=== PATIENT | male | born 1995 | race Caucasian/White ===

== ENCOUNTER 2019-10-12 19:48 | Emergency (ER) | payer OTHER, SELFPAY ==
[2019-10-12 19:50] VITALS: BP 135/85; PULSE 97; RESP 18; TEMP 37.4; O2SAT 98
--- NOTE | 2019-10-12 19:55 | ED.WOUNDLAC ---
HPI - Wound/Laceration General Chief Complaint: Wound/Laceration Stated Complaint: Cut on right hand Time Seen by Provider: 10/12/19 19:55 Source: patient and RN notes reviewed Mode of arrival: ambulatory Limitations: no limitations History of Present Illness HPI narrative: 24-year-old male presents with and laceration to the palmar aspect of his right hand. Reports he sustained the laceration just prior to arrival on a beer bottle. Patient is not up-to-date on his tetanus vaccine. Extremity Location: Right: hand Related Data Home Medications Medication Instructions Recorded Confirmed No Home Medications 10/12/19 10/12/19 Allergies Allergy/AdvReac Type Severity Reaction Status Date / Time No Known Allergies Allergy Verified 10/12/19 20:05 Review of Systems Review of Systems: Narrative: CONSTITUTIONAL: Denies malaise, chills, sweats, or fever. CARDIOVASCULAR: Denies chest pain, palpitations RESPIRATORY: Denies dyspnea. SKIN: Reports laceration to the palmar aspect of the right hand MUSCULOSKELETAL: Denies decreased range of motion or sensation NEUROLOGIC: Denies numbness, weakness. All systems reviewed & are unremarkable except as noted in HPI and below PMFSH Comments At time of signature, agree with nursing past medical, surgical, social and family history. There is no relevant family history pertinent to the presenting complaint Exam Narrative: Exam Narrative: GENERAL: Well-appearing, well-nourished, and in no acute distress. HEAD: Normocephalic, atraumatic. EYES: PERRLA, conjunctivae clear NECK: Supple. CHEST: Speaks in full sentences. No respiratory distress. HEART: Regular rate and rhythm. Normal and equal peripheral pulses. EXTREMITIES: Right hand and digits of hand have normal strength and sensation. 5/5 strength with digit flexion, extension. Range of motion normal. No clubbing, cyanosis, or edema noted. No tenderness. Skin intact. Normal digital cascade with flexion of fingers, median, ulnar and radial nerve intact. Normal sensation of each side of finger. Can perform 'okay' sign, 'cross over finger test of index and middle fingers' and 'thumbs up' sign. No scissoring. Normal thumb opposition. Good capillary refill and radial pulse. Distal capillary refill <3 seconds. SKIN: Warm, dry, no rash. 1.5 cm laceration into the subcutaneous tissue noted to the palmar aspect of the right hand beneath the first digit, slightly gaping. 2 superficial lacerations not into the subcutaneous tissue, not bleeding noted to the palmar aspect of the right hand beneath digits 4 and 5 NEURO: Alert and oriented x3. PSYCH: Normal mood and affect Course Course Emergency Course: Patient is aware of diagnosis, understands and agrees to treatment plan. Anticipatory guidance given. Patient agrees to follow-up as directed and is aware of reasons to seek care at the emergency department. Portions of this record may have been created with voice recognition software Vital Signs Vital signs: Vital Signs Temperature 99.3 F 10/12/19 19:50 Pulse Rate 97 10/12/19 19:50 Respiratory Rate 18 10/12/19 19:50 Blood Pressure 135/85 10/12/19 19:50 Pulse Oximetry 98 10/12/19 19:50 Temperature 99.3 F 10/12/19 19:50 Pulse Rate 97 10/12/19 19:50 Respiratory Rate 18 10/12/19 19:50 Blood Pressure 135/85 10/12/19 19:50 Pulse Oximetry 98 10/12/19 19:50 Reviewed. Procedures Laceration Laceration 1: Date: 10/12/19 Time: 19:58 Site: hand Side (If applicable): right Size (cm): 1.5 Description: linear Depth: simple, single layer Local Anesthetic: lidocaine 1% Amount of anesthesia used (mL): 2 Pre-repair: wound explored and irrigated ====== Skin Level ====== Skin layer closed with: nylon Size (cm): 5-0 Number of sutures: 4 Technique: simple, interrupted ====== Subcutaneous Layer ====== ====== Muscle L
[2019-10-12] MEDS: TETANUS,DIPHTHERIA,AC PERTUSSIS ADULT 0.5 ML (ADACEL) IM (20:24)
== END 2019-10-12 20:42 | disposition home or self-care (01) ==
PROVIDERS: Emergency Provider Nurse Practitioner; PCP Pediatrics
DX: S61.411A Laceration without foreign body of right hand, initial encounter (principal); W25.XXXA Contact with sharp glass, initial encounter; Z23 Encounter for immunization
CPT/HCPCS: 12001; 90471; 90715; 99212; G0463

== ENCOUNTER 2021-01-01 14:10 | Emergency (ER) | payer OTHER, SELFPAY ==
--- NOTE | ~2021-01-01 | XR_ITS ---
XR abdomen/kub 1V DATE: 01/01/2021 14:42 INDICATION: Left flank pain. Hematuria. TECHNIQUE: AP rejection, 2 views COMPARISON: None FINDINGS: The psoas shadows are intact. No visceromegaly is evident. There are 2 possible pinpoint calcifications overlying the left kidney. Small left renal calculi are not excluded. Bowel shadows might obscure subtle additional renal calcifications. There is no apparen t calcification overlying the course of either ureter or the urinary bladder. The psoas shadows are intact. No visceromegaly is detected. No evidence of bowel obstruction. The included skeletal structures are unremarkable. IMPRESSION: Possible pinpoint nonobstructing left renal calculi Noncontrast CT abdomen pelvis examination would be more sensitive and accurate for detection of urina ry tract calculi Reviewed, dictated and finalized at [facility]. Reviewed, dictated and finalized at [facility]. IMPRESSION: Possible pinpoint nonobstructing left renal calculi Noncontrast CT abdomen pelvis examination would be more sensitive and accurate for detection of urinary tract calculi
[2021-01-01 14:18] VITALS: BP 158/98; PULSE 73; RESP 22; TEMP 36.6; O2SAT 100
--- NOTE | 2021-01-01 14:24 | ED.MALEGU ---
HPI - Male Genitourinary General Chief complaint: Urogenital-Male Stated complaint: Back pain Time Seen by Provider: 01/01/21 14:50 Source: patient and RN notes reviewed Mode of arrival: ambulatory Limitations: no limitations History of Present Illness HPI Narrative: 25-year-old male presents with acute left flank pain. He reports pain started suddenly just prior to arrival when he was getting up from a chair. He reports the pain is intermittent and is severe. He reports an episode of nausea without vomiting during triage. He denies any exacerbating or relieving factors. He denies urgency, frequency, dysuria. He denies any injury or trauma. MD Complaint: other (Flank pain) Related Data Allergies Allergy/AdvReac Type Severity Reaction Status Date / Time No Known Allergies Allergy Verified 01/01/21 14:44 Review of Systems Review of Systems: CONSTITUTIONAL: Denies malaise, chills or fever.. Reports sweats CARDIOVASCULAR: Denies chest pain, palpitations, or edema. RESPIRATORY: Denies cough or dyspnea. GASTROINTESTINAL: Denies abdominal pain, vomiting, diarrhea. Reports nausea GENITOURINARY: Denies dysuria, frequency, urgency hematuria. MUSCULOSKELETAL reports left flank pain All systems reviewed & are unremarkable except as noted in HPI and below PMFSH Comments At time of signature, agree with nursing past medical, surgical, social and family history. There is no relevant family history pertinent to the presenting complaint Exam Narrative: GENERAL: Patient pacing, diaphoretic, in acute pain HEAD: Normocephalic EYES: PERRLA, conjunctivae clear ENT: Mucous membranes moist. NECK: Supple. CHEST: No respiratory distress. Clear to auscultation. No bony deformities, no asymmetry. Speaks in full sentences. HEART: Regular rate and rhythm. No murmur heard. Normal peripheral pulses. ABDOMEN: Soft, nontender, nondistended, normal active bowel sounds, no palpable masses. No CVA tenderness SKIN: Warm, nephrotic NEURO: Alert and oriented x3. PSYCH: Normal mood and affect Course Course Emergency Course: Patient is aware of diagnosis, understands and agrees to treatment plan. Anticipatory guidance given. Patient agrees to follow-up as directed and is aware of reasons to seek care at the emergency department. Portions of this record may have been created with voice recognition software Reevaluation(s) Reevaluation #1: Patient reevaluated after Toradol and Zofran. Patient's pain is at this time 0, denies nausea, vomiting, flank pain at this time. Date: 01/01/21 Time: 15:10 Vital Signs Vital signs: Reviewed. MDM - Male Genitourinary ABG Data Interpretation: Exam findings and imaging show no acute concerns or changes; patient is non-toxic appearing and is in no distress. Patient is appropriate for outpatient treatment and follow-up. Imaging Data My impression: Images reviewed, interpreted by radiologist, agree, see report. Radiologist's impression: XR abdomen/kub 1V DATE: 01/01/2021 14:42 INDICATION: Left flank pain. Hematuria. TECHNIQUE: AP rejection, 2 views COMPARISON: None FINDINGS: The psoas shadows are intact. No visceromegaly is evident. There are 2 possible pinpoint calcifications overlying the left kidney. Small left renal calculi are not excluded. Bowel shadows might obscure subtle additional renal calcifications. There is no apparent calcification overlying the course of either ureter or the urinary bladder. The psoas shadows are intact. No visceromegaly is detected. No evidence of bowel obstruction. The included skeletal structures are unremarkable. IMPRESSION: Possible pinpoint nonobstructing left renal calculi Noncontrast CT abdomen pelvis examination would be more sensitive and accurate for detection of urinary tract calculi Critical Care Time Critical Care Time Critical Care Time: No Discharge Plan Discharge Clinical Impression: Renal calculi Patient Disposition: Home, Self-Care
[2021-01-01] MEDS: ONDANSETRON HCL ODT 4 MG TABLET PO (14:29)
[2021-01-01] MEDS: KETOROLAC (*BKC) 60 MG/2 ML VIAL IM (14:34)
== END 2021-01-01 15:22 | disposition home or self-care (01) ==
PROVIDERS: Emergency Provider Nurse Practitioner; PCP Pediatrics
DX: N20.0 Calculus of kidney (principal)
CPT/HCPCS: 74018; 81003; 96372; 99213; A9270; G0463; J1885